=== PATIENT | female | born 1990 | race Caucasian/White ===

== ENCOUNTER → 2018-12-09 | Outpatient (CLI) | payer MEDICAID ==
[~2018-12-09] MED LIST: BIRTH CONTROL PO; HYDR1TAB75 PO; TETR250C3 PO
== END ==
LOC: CARD 15:06
PROVIDERS: ATTEND Obstetrics & Gynecology
DX: R00.2 Palpitations (principal)
CPT/HCPCS: 93005

== ENCOUNTER 2019-03-10 10:24 | Outpatient (RCR) | payer MEDICAID ==
--- NOTE | 2019-03-09 10:25 | NUR ---
to WS via ambulation for steroid injection. smiling talking with staff, denies pain or contractions, leaking or bleeding. accompanied to waiting room while preparation is made for ordered treatment.
[2019-03-09] MEDS: BETAMETHASONE ACE/NA PHOS 6 MG/ML (CELESTONE SOLUSPAN) IM SCH (10:47)
--- NOTE | 2019-03-09 10:47 | NUR ---
to room 314, betamethasone shot given in Left ventrogluteal. no c/o before, after or during administration. no bleeding at injection site. declines a bandaid.
--- NOTE | 2019-03-09 10:50 | NUR ---
ambulated to home self care. no distress noted by rn or reported by patient.
--- NOTE | 2019-03-10 10:20 | NUR ---
Pt here via ambulation for second betamethasone injection.
[~2019-03-10 10:24] MED LIST changes: +BETAMETHASONE ACE/NA PHOS 6 MG/ML (CELESTONE SOLUSPAN) IM SCH; +BETAMETHASONE ACE/NA PHOS 6 MG/ML (CELESTONE SOLUSPAN) ONE
[2019-03-10] MEDS: BETAMETHASONE ACE/NA PHOS 6 MG/ML (CELESTONE SOLUSPAN) IM SCH (10:35)
--- NOTE | 2019-03-10 10:35 | NUR ---
Betamethasone given, see eMar. lot [id number], exp . Pt tolerates well. Ambulates off unit to private vehicle without s/s of distress
== END 2019-03-10 10:40 | disposition home or self-care (01) ==
LOC: WSo 10:24
PROVIDERS: ATTEND Obstetrics & Gynecology
DX: Z87.51 Personal history of pre-term labor (principal)
CPT/HCPCS: 96372

== ENCOUNTER 2019-03-31 11:19 | Observation (INO) | payer MEDICAID ==
[~2019-03-31] VITALS: Ht 167.6 cm; Wt 65.4 kg
[~2019-03-31 11:19] MED LIST changes: -BETAMETHASONE ACE/NA PHOS 6 MG/ML (CELESTONE SOLUSPAN) IM SCH; -BETAMETHASONE ACE/NA PHOS 6 MG/ML (CELESTONE SOLUSPAN) ONE
--- NOTE | 2019-03-31 11:19 | NUR ---
ALEKSANDR PERALTA presented to unit via AMBULATORY from OFFICE, accompanied by S/O, with c/o LEAKING FLUID. ALEKSANDR PERALTA weighed, gowned, voided, and to bed. EFHM and TOCO applied, VS taken. ALEKSANDR PERALTA oriented to bed controls, call light, TV, heat, and A/C controls.
[2019-03-31] MEDS ORDERED: D5 LR IV SOLUTION 1,000 ML IV ONE (11:32)
[2019-03-31] MEDS: D5 LR IV SOLUTION 1,000 ML IV SCH ×2 (11:52→18:00)
[2019-03-31 11:55] VITALS: BP 120/65
[2019-03-31 13:40] VITALS: BP 112/58
[2019-03-31 17:10] VITALS: BP 112/63
[2019-03-31 19:15] VITALS: BP 119/60
--- NOTE | 2019-03-31 19:15 | NUR ---
Dr Pinedo called, no change in orders, continue to monitor pt for s/s of active labor call if change.
[2019-04-01] VITALS: BP 97/50
[2019-04-01] MEDS: D5 LR IV SOLUTION 1,000 ML IV SCH ×2 (00:43→07:32)
[2019-04-01 04:02] VITALS: BP 111/60
[2019-04-01 07:35] VITALS: BP 117/66
--- NOTE | 2019-04-01 07:58 | Discharge Instructions ---
Discharge Instructions Discharge Medications New, Converted or Re-Newed RX: Other Patient Instructions Return to The Hospital For: As directed Activity & Diet Discharge Diet: No Restrictions Activity as Tolerated: Yes Orders-Post D/C & Referrals Follow Up Appt: Return to clinic on Tuesday, April 02, 2019 at 930 a.m. for OB follow-up. Return to clinic for any signs symptoms and indications of labor or rupture membranes Activity: as tolerated. Diet: As tolerated-Clear Liquids only if nauseated. shower or tub bathe as desired. CHARLES HUNTER MD Apr 01, 2019 07:58
--- NOTE | 2019-04-01 08:02 | History & Physical ---
History and Physical Date Seen by Provider: Mar 31, 2019 Time Seen by Provider: 16:00 Patient is a 28-year-old white female with an EDC of 2018 putting her at 34-3/7 weeks' gestation on the day of admission. She was seen in my clinic for evaluation secondary complaint of contractions and bleeding. Her history is significant for delivery at 34 weeks and another 36 weeks. She had received prophylactic steroids at 32 weeks gestation. She was found to be dilated 3 cm. Nitrazine test was equivocal. Fern test was negative. NST in my clinic showed contractions every 3-4 minutes. She was sent to labor and delivery for evaluation. Allergies are to Imitrex was causes palpitations and morphine which is a family allergy Medications are Bentyl and vitamins Medical social and surgical histories are per the antepartum record HEENT exam is normal Neck supple no lymphadenopathy no thyromegaly Abdomen is gravid soft nontender nondistended Extreme show no clubbing cyanosis. There is no Homans sign. Pelvic exam in clinic showed a cervix 3 similar dilated 50 percent or so effaced -2 station with a vertex presentation. M Yuriy palpable. Nitrazine was positive and a repeat nitrazine was positive. Fern test was negative. NST in my clinic showed contractions every 3-5 minutes. Patient was overtly uncomfortable during the peak of the contractions. Assessment and plan 28-year-old currently at 34-3/7 weeks' gestation with a history of a delivery at 34 weeks and another at 36 weeks admitted now for observation for labor and possible rupture membranes. Nitrazine w ill be repeated if there is a question as to rupture membranes and a indigo carmine tests will be considered. Patient would not be tocolysed that she is past 34 weeks, the patient labors she will be allowed to deliver. labor at 34-3/7 weeks gestation Allergies and Home Medications Allergies Coded Allergies: Morphine (Verified Allergy, Unknown, 01/29/10) Home Medications Hydrocodone Bit/Acetaminophen 1 Each Tablet, 1-2 TAB PO q3hrs PRN, (Reported) Tetracycline Hcl 250 Mg Capsule, 250 MG PO DAILY, (Reported) [ Control] , 1 TAB PO DAILY, (Reported) Patient Home Medication List Home Medication List Reviewed: Yes Clinical Quality Measures DVT/VTE Risk/Contraindication: Risk Factor Score Per Nursin RFS Level Per Nursing on Admit: 1=Low/No VTE PPX ELSA,CHARLES G MD Apr 01, 2019 08:02
--- NOTE | 2019-04-01 08:04 | Progress Note ---
Standard Progress Note Progress Notes/Assess & Plan Date Seen by a Provider: Apr 01, 2019 Time Seen by a Provider: 08:02 Progress/Assessment & Plan This patient is without complaint. She feels only an occasional contraction. Her cervix is shown no change through the night she remains at about 3 cm $0.50. Nitrazine has been repeated at least on 3 occasions with 1 just on this morning negative. Patient denies rupture membranes or bleeding at this point. monitor shows contractions on the order of 2 or 3 an hour and patient is not feeling the majority of those. There is a normal heart rate pattern that one episode of decrease heart rate with no recurrences and otherwise a normal reassuring heart rate strip. The abdomen is benign. Pelvic exam per the nurse shows no change in her cervix from admission. Assessment and plan labor at 34 and now 4/7 weeks' gestation with no change in cervix her contractions have essentially resolved. She is at baseline with occasional contraction that she has been is basically experiencing for several weeks now. Plan is for discharge home with follow-up in clinic CHARLES HUNTER MD Apr 01, 2019 08:04
[2019-04-01 08:35] VITALS: BP 117/66
--- NOTE | 2019-04-01 08:35 | NUR ---
Discharge instructions explained to pt with copy provided to pt. Note for S.o. provided per their request. Pt knows to follow up with Dr. Pinedo tomorrow. No questions or concerns voiced at this time. Pt verbalizes understanding of instructions and signs to verify. Pt ambulates off unit accompanied by S.O. to private vehicle. No s/s of distress noted.
== END 2019-04-01 07:56 | disposition home or self-care (01) ==
LOC: LDRP 11:19 → UNDOADMOB 11:30 → LDRP 11:30 → UNDODISOB 04-01 08:35
PROVIDERS: ADMIT Obstetrics & Gynecology; ATTEND Obstetrics & Gynecology
DX: O60.03 Preterm labor without delivery, third trimester (principal); Z88.5 Allergy status to narcotic agent; Z88.8 Allergy status to other drugs, medicaments and biological substances; Z79.891 Long term (current) use of opiate analgesic; Z79.2 Long term (current) use of antibiotics
CPT/HCPCS: 96360; 96361; 99211; G0378

== ENCOUNTER 2019-04-04 19:55 | Outpatient (CLI) | payer MEDICAID ==
[~2019-04-04] VITALS: Ht 66 cm; Wt 66.6 kg
--- NOTE | 2019-04-04 20:00 | NUR ---
ALEKSANDR PERALTA presented to unit via from ED, accompanied by S/O, with c/o 35 WEEKS GEST/ PRESSURE . ALEKSANDR PERALTA weighed, gowned, voided, and to bed. EFHM and TOCO applied, VS taken. ALEKSANDR PERALTA oriented to bed controls, call light, TV, heat, and A/C controls.
[2019-04-04 20:42] VITALS: BP 114/67
[2019-04-04 20:51] VITALS: BP 114/67
--- NOTE | 2019-04-04 20:52 | NUR ---
Pt given written and verbal discharge instructions, pt ambulated to private vehicle with SO. Pt reassured and after reactive NST pt discharged with labor precautions.
--- NOTE | 2019-04-05 08:25 | Physician Query-Final Dx ---
ALCIDES MARQUEZ 04/05/19 0825: Clinic Account Progress/Dx Physician Query: Please give diagnosis Please include weeks of gestation Date of Service Apr 04, 2019 at 19:55 CHARLES HUNTER MD 04/05/19 1235: Clinic Account Progress/Dx DIAGNOSIS: Diagnosis 35 weeks false labor ALCIDES MARQUEZ Apr 05, 2019 08:25 CHARLES HUNTER MD Apr 05, 2019 12:35
== END 2019-04-04 20:50 | disposition home or self-care (01) ==
LOC: LDRP 19:55 → WSo 19:55
PROVIDERS: ATTEND Obstetrics & Gynecology
DX: O47.03 False labor before 37 completed weeks of gestation, third trimester (principal); Z3A.35 35 weeks gestation of pregnancy
CPT/HCPCS: 99213

== ENCOUNTER 2019-04-13 10:25 | Inpatient (IN) | payer MEDICAID ==
[~2019-04-13] VITALS: Ht 167.7 cm; Wt 68.5 kg
[2019-04-13] VITALS (33 sets, daily range): BP systolic 106–138; BP diastolic 56–81
--- NOTE | 2019-04-13 10:20 | NUR ---
Arrived to unit via ambulation. Sent from clinic due to dilation, contractions and bloody show noted in clinic. Orders received prior to pt arrival. Wt obtained, gowned and to bed. monitors on. oriented to room, call light and surroundings.
[2019-04-13] MEDS ORDERED: D5 LR IV SOLUTION 1,000 ML IV SCH (11:09)
[2019-04-13] MEDS ORDERED: D5 LR IV SOLUTION 1,000 ML IV ONE (11:14)
[2019-04-13 11:21] LABS: BASOPHILS % (AUTO) 0 % (0-10); EOSINOPHILS # (AUTO) 0.2 10^3/uL (0.0-0.3); EOSINOPHILS % (AUTO) 1 % (0-10); HEMATOCRIT 33 % (35-52); LYMPHOCYTES # (AUTO) 2.8 X 10^3 (1.0-4.0); LYMPHOCYTES % (AUTO) 20 % (12-44); MEAN CORPUSCULAR HEMOGLOBIN 29 PG (25-34); MEAN CORPUSCULAR HGB CONC 33 G/DL (32-36); MEAN CORPUSCULAR VOLUME 86 FL (80-99); MONOCYTES % (AUTO) 7 % (0-12); NEUTROPHILS # (AUTO) 9.9 X 10^3 (1.8-7.8); NEUTROPHILS % (AUTO) 72 % (42-75); PLATELET COUNT 235 10^3/uL (130-400); RED CELL DISTRIBUTION WIDTH 13.3 % (10.0-14.5); WHITE BLOOD COUNT 13.8 10^3/uL (4.3-11.0)
[2019-04-13] MEDS ORDERED: PREN-37 PO (11:24)
[2019-04-13] MEDS ORDERED: RT-ALBUINH IH (11:24)
[2019-04-13] MEDS ORDERED: SODI4VIA26 IH (11:24)
[2019-04-13] MEDS ORDERED: OXYTOCIN/NORMAL SALINE 500 ML IV SCH (11:38)
--- NOTE | 2019-04-13 11:38 | History & Physical ---
History and Physical Date Seen by Provider: Apr 13, 2019 Time Seen by Provider: 11:35 This patient is a 28-year-old white female with an EDC of 2018 putting her now at 36-2/7 weeks' gestation. She was sent to labor and delivery for my clinic was she was found to be antonio with some regularity and dilated between 4-5 cm and having bloody show. Her history is significant for deliveries at 34 and 36 weeks with her prior 2 pregnancies. She denies rupture membranes. Her GBS culture done at 35 weeks gestation was negative. Allergies are to Imitrex and morphine Medications are vitamins and Bentyl Medical social and surgical histories are per the antepartum record HEENT exam is normal Neck is supple no lymphadenopathy no thyromegaly Abdomen is gravid soft nontender nondistended Extremities show no clubbing cyanosis. There is no Homans sign. Pelvic exam just perform shows a cervix 5-6 cm dilated 80 percent effaced and 0 station vertex presentation bulging bag and relatively heavy bloody show. monitor shows contractions about every 4 minutes with normal heart rate pattern Laboratory Tests 04/13/19 10:45 White blood cell count is mildly elevated Assessment and plan labor at 36-2/7 weeks' gestation admitted for labor management. We anticipate a vaginal delivery. labor at 36 weeks gestation Allergies and Home Medications Allergies Coded Allergies: Morphine (Verified Allergy, Unknown, 01/29/10) Home Medications Albuterol Sulfate 1 Puff Puff, 2 PUFF IH Q4H, (Reported) 1 PUFF = 90 MCG Vit/Iron Fumarate/FA 1 Each Tablet, 1 EACH PO DAILY, (Reported) Patient Home Medication List Home Medication List Reviewed: Yes CHARLES HUNTER MD Apr 13, 2019 11:38
--- NOTE | 2019-04-13 11:41 | Discharge Instructions ---
Discharge Instructions Discharge Medications New, Converted or Re-Newed RX: RX on Chart Patient Instructions Return to The Hospital For: As directed Activity & Diet Discharge Diet: No Restrictions Activity as Tolerated: No Orders-Post D/C & Referrals Follow Up Appt: Call to make follow up appt. for patient in 4 weeks. Activity Per routine post vaginal delivery instructions. Please call in RX to patient pharmacy. Diet as tolerated Patient may shower or tub bathe as desired. CHARLES HUNTER MD Apr 13, 2019 11:41
[2019-04-13] MEDS ORDERED: IBUP-1780 PO (11:42)
[2019-04-13] MEDS ORDERED: DOCU100C37 PO (11:42)
[2019-04-13] MEDS ORDERED: OXYC1TAB87 PO (11:42)
[2019-04-13] MEDS ORDERED: MEASLES,MUMPS,RUBELLA 1 EA INJ SC ONE (11:45)
[2019-04-13] MEDS ORDERED: oxyCODONE/APAP 5/325MG (PERCOCET 5) TABLET PO PRN (11:45)
[2019-04-13] MEDS ORDERED: TETANUS,DIPTH,PERTUSS P/F (BOOSTRIX) 0.5 ML VIAL IM ONE (11:45)
[2019-04-13] MEDS ORDERED: BENZOCAINE/MENTHOL (DERMOPLAST) 56 ML CAN TP PRN (11:45)
[2019-04-13] MEDS ORDERED: ONDANSETRON 4 MG/2 ML (SDV) Z0FRAN IVP PRN (11:45)
[2019-04-13] MEDS ORDERED: KETOROLAC 30 MG/ML VIAL IVP PRN (11:45)
[2019-04-13] MEDS: IBUPROFEN 800 MG (MOTRIN) TAB PO SCH ×2 (12:00→17:45)
[2019-04-13] MEDS ORDERED: SUFENTA 0.6MCG/ML BUPIVA 0.125 100 ML ONE (12:04)
[2019-04-13] MEDS ORDERED: fentaNYL INJECTION 100 MCG/2 ML AMP ONE (12:33)
[2019-04-13] MEDS ORDERED: BUPIVACAINE 0.25% 30 ML (SENSORCAINE) VIAL ONE (12:33)
[2019-04-13] MEDS ORDERED: LACTATED RINGERS 1,000 ML IV ONE ×2 (13:05)
[2019-04-13] MEDS ORDERED: NALOXONE 0.4 MG/ML 1 ML (NARCAN) VIAL IV PRN (13:15)
[2019-04-13] MEDS ORDERED: ONDANSETRON 4 MG/2 ML (SDV) Z0FRAN IV PRN (13:15)
[2019-04-13] MEDS ORDERED: EPIDURAL (SUFENTA 0.6MCG/ML BUPIVA 0.125%) 100 ML BAG EPI PRN (13:15)
[2019-04-13] MEDS ORDERED: CATHETER FLUSH 10 ML SYR IV SCH (14:00)
[2019-04-13] MEDS ORDERED: LIDOCAINE/EPI 2% 1:200,00 (XYLOCAINE) 10 ML VIAL ONE (15:36)
--- NOTE | 2019-04-13 15:51 | NUR ---
Spontaneous vaginal delivery of placenta with cord attached. perineum examined per dr sheppard, small left periurethral abrasion noted, no repair. fundal massage by rn. ffu/1 with lt rubra noted, no clots expressed. 1558 pericare, pad under pt. pt assisted to sf position ffu/0 with lt rubra noted, no clots expressed. plan of care reviewed with pt regarding recovery. 1613 ffu/0 with lt-mod rubra noted, no clots expressed. vss. 1628 ffu/0 with lt-mod rubra noted, no clots expressed. vss. 1643 ffu/0 with lt-mod rubra noted, no clots expressed. vss 1658 ffu/0 with lt-mod rubra noted. no clots expressed. vss. holding infant in arms. discussed menu/diet an ordering process. pt verbalized understanding.
--- NOTE | 2019-04-13 17:35 | NUR ---
Assisted up to void, pericare and then to wheelchair, transferred to room 312. Oriented to room, call light and surroundings.
--- NOTE | 2019-04-13 19:35 | NUR ---
REPORT RECEIVED AND CARES RESUMED BY THIS NURSE.
[2019-04-13] MEDS: DOCUSATE SODIUM 100 MG (COLACE) CAP PO SCH (20:49)
--- NOTE | 2019-04-13 20:50 | NUR ---
INITIAL SHIFT ASSESSMENT DONE. VSS. PT DENIES ANY NEEDS AT THIS TIME.
--- NOTE | 2019-04-13 22:15 | NUR ---
IV PITOCIN INFUSED. IV TO SALINE LOCK AT THIS TIME. PT UP TO SHOWER PER REQUEST.
--- NOTE | 2019-04-13 22:58 | OPERATIVE REPORT ---
DATE OF SERVICE: 04/13/2019 The patient delivered by spontaneous vaginal delivery at 36 and 2/7 weeks gestation a viable female with Apgars of 9 and 9 at 1 and 5 minutes respectively, weight of 5 pounds 13 ounces. Cord blood pH that is pending and a time of 15:46. The infant was delivered over an intact perineum under epidural analgesia. The infant was bulb suctioned on delivery of the head and nuchal cord was easily released and then the delivery completed atraumatically. The infant was bulb suctioned on delivery of the head and again on completion of the delivery. The umbilical cord was doubly clamped, father cut the cord, the baby was passed to mom's abdomen. The cord was essentially pulseless at the time it was clamped. The placenta delivered spontaneously Verma. It was a normal-appearing placenta with 3-vessel cord. It did have two accessory lobes with some velamentous vessels connecting the placental plate to the accessory lobes. The placenta was sent to pathology for permanent section. The cervix, vagina, rectum, and perineum were examined and found intact, except for a LEFT superficial left periurethral abrasion. That area was intact and no repair was required. Sponge and needle counts were correct on completion of delivery and the exam. The baby remained in the LDR with the mom, who remained in the LDR for recovery. Estimated blood loss was around 50 mL for delivery. Job ID: [id number] DocumentID: [id number] Dictated Date: 04/13/2019 15:58:13 Iron Caster Date: 04/13/2019 22:57:48 Dictated By: CHARLES HUNTER MD MTDD
[2019-04-14] MEDS: IBUPROFEN 800 MG (MOTRIN) TAB PO SCH ×4 (00:55→18:28)
[2019-04-14 01:00] VITALS: BP 94/53
--- NOTE | 2019-04-14 01:00 | NUR ---
PT RESTING WELL. VSS. MOTRIN ADMINISTERED. DENIES ANY NEEDS OR C/O'S.
--- NOTE | 2019-04-14 03:30 | NUR ---
PT RESTING OFF ET ON. DENIES ANY PAIN OR NEEDS.
--- NOTE | 2019-04-14 07:44 | Anesthesia-Regional Post-Op ---
Regional Patient Condition Mental Status: Alert, Oriented x3 Circulation: Same as Pre-Op Headache: Absent Sensation: Full Recovery Motor Block: Absent Post Op Complications Complications None Follow Up Care/Instructions Patient Instructions None needed. Anesthesia/Patient Condition Patient is doing well, no complaints, stable vital signs, no apparent adverse anesthesia problems. No complications reported per nursing. ANURADHA TORRES CRNA Apr 14, 2019 07:44
--- NOTE | 2019-04-14 07:57 | Progress Note ---
Standard Progress Note Progress Notes/Assess & Plan Date Seen by a Provider: Apr 14, 2019 Time Seen by a Provider: 07:57 Progress/Assessment & Plan This patient is without complaint. She is ambulating, voiding, tolerating oral intake and has good pain control. Vital Signs 04/13/19 04/14/19 15:35 01:00 Temp 36.6 Pulse 71 Resp 16 B/P (MAP) 94/53 (67) Pulse Ox 98 O2 Delivery Room Air Vital signs are stable. Patient is afebrile. Abdomen is benign. Fundus is firm below the umbilicus nontender. Extreme show no clubbing cyanosis. There is no sign. Assessment and plan day number 1 doing well. Plan is for routine convalescence care CHARLES HUNTER MD Apr 14, 2019 07:57
[2019-04-14] MEDS: DOCUSATE SODIUM 100 MG (COLACE) CAP PO SCH ×2 (10:00→21:01)
[2019-04-14 10:15] VITALS: BP 109/69
[2019-04-14] MEDS ORDERED: WITCH HAZEL(TUCKS) 40 EA JAR ONE (12:47)
[2019-04-14] MEDS ORDERED: WITCH HAZEL(TUCKS) 40 EA JAR TOP ONE (12:48)
[2019-04-14 14:21] VITALS: BP 100/53
--- NOTE | 2019-04-14 19:25 | NUR ---
REPORT RECEIVED AND CARES RESUMED BY THIS NURSE.
[2019-04-14 20:50] VITALS: BP 129/75
[2019-04-14 21:00] VITALS: BP 120/76
--- NOTE | 2019-04-14 21:00 | NUR ---
INITIAL SHIFT ASSESSMENT DONE. VSS. PT DENIES ANY NEEDS.
--- NOTE | 2019-04-14 23:30 | NUR ---
PT DENIES ANY NEEDS OR C/O'S. PROVIDING ALL CARES FOR .
[2019-04-15 03:45] VITALS: BP 114/70
--- NOTE | 2019-04-15 03:45 | NUR ---
PT CONCERNED WITH INFANT STUFFINESS. INFANT TO NSY.
[2019-04-15 05:00] VITALS: BP 118/74
--- NOTE | 2019-04-15 06:00 | NUR ---
MOTRIN ADMINISTERED AND PT REPORTS THAT PAIN HAS RESOLVED.
--- NOTE | 2019-04-15 07:50 | Progress Note ---
Standard Progress Note Progress Notes/Assess & Plan Date Seen by a Provider: Apr 15, 2019 Time Seen by a Provider: 07:49 Progress/Assessment & Plan This patient is without complaint. She is ambulating, voiding, tolerating oral intake and has good pain control. Vital Signs 04/13/19 04/14/19 15:35 01:00 Temp 36.6 Pulse 71 Resp 16 B/P (MAP) 94/53 (67) Pulse Ox 98 O2 Delivery Room Air Vital signs are stable. Patient is afebrile. Abdomen is benign. Fundus is firm below the umbilicus nontender. Extreme show no clubbing cyanosis. There is no sign. Assessment and plan day number 1 doing well. Plan is for routine convalescence care April 15, 2019. Patient without complaint. She is ablating, voiding, tolerating oral intake well has good pain control. Patient is requesting discharge home. Vital Signs Date Time Temp Pulse Resp B/P (MAP) Pulse Ox O2 Delivery O2 Flow Rate FiO2 04/14/19 14:21 37.1 76 16 100/53 (69) 97 Room Air 04/14/19 10:15 36.7 80 16 109/69 (82) 96 Room Air Vital signs are stable. Patient is afebrile. Fundus is firm below the umbilicus and nontender. Extremities show no clubbing cyanosis. There is no Homans sign. There is minimal pretibial pitting edema. Assessment and plan day number 2 status post spontaneous vaginal delivery at 36+ weeks gestation doing well. Plan is for discharge home with follow-up in clinic Final Diagnosis 36 week spontaneous vaginal delivery CHARLES HUNTER MD Apr 15, 2019 07:50
[2019-04-15 08:03] VITALS: BP 95/57
--- NOTE | 2019-04-15 08:10 | NUR ---
REPORT TO ONCOMING SHIFT.
[2019-04-15] MEDS: DOCUSATE SODIUM 100 MG (COLACE) CAP PO SCH (09:04)
[2019-04-15] MEDS ORDERED: TETANUS,DIPTH,PERTUSS P/F (BOOSTRIX) 0.5 ML VIAL IM ONE (11:05)
[2019-04-15] MEDS: IBUPROFEN 800 MG (MOTRIN) TAB PO SCH (11:17)
--- NOTE | 2019-04-15 11:24 | NUR ---
prescriptions called to [facility] per pt request.
--- NOTE | 2019-04-15 12:00 | NUR ---
Discharge instructions explained, signed and copy to pt. pt verbalized understanding of instructions and denied questions. prescription given to pt and previously called in to pharmacy. pt verbalized understanding of medications and denied questions.
--- NOTE | 2019-04-15 12:55 | NUR ---
Discharged to home. Ambulates self downstairs accompanied by s.o. and staff member. To private vehicle with belongings in hand.
== END 2019-04-15 12:55 | disposition home or self-care (01) | DRG 807 ==
LOC: LDRP 10:25
PROVIDERS: ADMIT Obstetrics & Gynecology; ATTEND Obstetrics & Gynecology
PROC: 10E0XZZ Delivery of Products of Conception, External Approach (ICD-10-PCS; principal; 2019-04-13)
DX: O60.14X0 Preterm labor third trimester with preterm delivery third trimester, not applicable or unspecified (principal); O71.82 Other specified trauma to perineum and vulva; O43.893 Other placental disorders, third trimester; Z3A.36 36 weeks gestation of pregnancy; Z37.0 Single live birth; Z88.5 Allergy status to narcotic agent; Z23 Encounter for immunization
CPT/HCPCS: 36415; 85025; 86850; 86900; 86901; 90715